=== PATIENT | female | born 1955 | race Caucasian/White ===

== ENCOUNTER 2017-12-18 07:23 | Day surgery (SDC) | payer OTHER ==
[2017-12-18 08:30] LABS: ADD MAN DIFF? NO
[2017-12-18 08:34] LABS: WHITE BLOOD COUNT 4.6 10^3/ul (4.8-10.8)
[2017-12-18 08:34] LABS: BASOPHILS % 0.2 % (0.0-2.0); EOSINOPHILS # 0.1 10^3/ul (0.0-0.5); EOSINOPHILS % 2.6 % (0.0-7.0); HEMATOCRIT 40.8 % (37.0-47.0); HEMOGLOBIN 12.9 g/dl (12.0-16.0); LYMPHOCYTES # 1.6 10^3/ul (0.8-2.9); LYMPHOCYTES % 34.1 % (15.0-51.0); MEAN CORPUSCULAR HEMOGLOBIN 26.6 pg (29.0-33.0); MEAN CORPUSCULAR HGB CONC 31.6 g/dl (32.0-37.0); MEAN CORPUSCULAR VOLUME 84.1 fl (82.0-101.0); MEAN PLATELET VOLUME 11.9 fl (7.4-10.4); MONOCYTE # 0.3 10^3/ul (0.3-0.9); MONOCYTES % 6.9 % (0.0-11.0); NEUTROPHIL # 2.6 10^3/ul (1.6-7.5); PLATELET COUNT 172 10^3/UL (140-415); RED BLOOD COUNT 4.85 10^6/ul (4.20-5.40); RED CELL DISTRIBUTION WIDTH 13.6 % (11.5-14.5)
[2017-12-18 08:56] LABS: INR 1.09; PROTIME 14.2 Sec (11.9-14.9); PT RATIO 1.1
[2017-12-18 08:57] LABS: PARTIAL THROMBOPLASTIN TIME 27.6 Sec (25.0-35.0)
[2017-12-18] MEDS ORDERED: VERAPAMIL 5 MG INJ (09:00)
[2017-12-18] MEDS ORDERED: LIDOCAINE 1% (MDV) 10 ML INJ (09:00)
[2017-12-18] MEDS ORDERED: IODIXANOL LOCM 100 ML BTL ×2 (09:00→09:57)
[2017-12-18] MEDS ORDERED: MIDAZOLAM 1 MG/ML 2 ML INJ (09:00)
[2017-12-18] MEDS ORDERED: NITROGLYCERIN (IC) 100 MCG/ML INJ (09:00)
[2017-12-18] MEDS ORDERED: HEPARIN 1000 UNITS/ML 10 ML INJ (09:00)
[2017-12-18] MEDS ORDERED: FENTAnyl 50 MCG/ML VIAL (09:00)
[2017-12-18 09:02] LABS: ANION GAP 15 (8-16); CARBON DIOXIDE 32 mmol/L (21-31); CHLORIDE 103 mmol/L (97-110); CHOLESTEROL 150 mg/dl (100-200); GLUCOSE 102 mg/dl (70-220); TRIGLYCERIDES 113 mg/dl (0-149)
[2017-12-18 09:10] LABS: BLOOD UREA NITROGEN 10 mg/dl (7-20); CALCIUM 9.3 mg/dl (8.4-10.2); CREATININE 0.59 mg/dl (0.44-1.00); POTASSIUM 3.7 mmol/L (3.5-5.1); SODIUM 146 mmol/L (135-144)
[2017-12-18] MEDS ORDERED: IOHEXOL 350MG/ML 50 ML BTL (09:57)
[2017-12-18] MEDS ORDERED: TICAGRELOR 90 MG TABLET (10:16)
[2017-12-18] MEDS ORDERED: ASPIRIN 325 MG TAB (10:16)
[2017-12-18] MEDS ORDERED: ONDANSETRON 4 MG INJ IV (10:30)
[2017-12-18] MEDS ORDERED: ACETAMINOPHEN 325 MG TAB PO (10:30)
[2017-12-18] MEDS ORDERED: AL HYDROX/MG HYDROX/SIMETH 30 ML CUP PO (10:30)
[2017-12-18] MEDS ORDERED: morphine 2 MG INJ IV (10:30)
[2017-12-18] MEDS ORDERED: OXYCODONE/ACETAMINOPHEN (5/325) TAB PO (10:30)
[2017-12-18] MEDS: SOD CHLORIDE 0.9% 1,000 ML IV (11:05)
[2017-12-18] MEDS: GABAPENTIN 300 MG CAP PO (14:30)
[2017-12-18] MEDS ORDERED: NACL 0.9% 3 ML SYG IV (14:30)
[2017-12-18] MEDS: TICAGRELOR 90 MG TABLET PO (20:30)
[2017-12-18] MEDS: ATORVASTATIN 20 MG TAB PO (20:30)
[2017-12-18] MEDS: METOPROLOL 25 MG TAB PO (20:31)
[2017-12-18] MEDS: CALCIUM CARBONATE 1.25 GM TAB PO (20:31)
[2017-12-18] MEDS: ZOLPIDEM 5 MG TAB PO (22:52)
[2017-12-19 05:52] LABS: ADD MAN DIFF? NO
[2017-12-19 05:56] LABS: WHITE BLOOD COUNT 7.7 10^3/ul (4.8-10.8)
[2017-12-19 05:56] LABS: BASOPHILS % 0.1 % (0.0-2.0); EOSINOPHILS # 0.1 10^3/ul (0.0-0.5); HEMOGLOBIN 12.5 g/dl (12.0-16.0); LYMPHOCYTES # 1.7 10^3/ul (0.8-2.9); LYMPHOCYTES % 21.7 % (15.0-51.0); MEAN CORPUSCULAR HEMOGLOBIN 27.2 pg (29.0-33.0); MEAN CORPUSCULAR HGB CONC 32.9 g/dl (32.0-37.0); MEAN CORPUSCULAR VOLUME 82.6 fl (82.0-101.0); MEAN PLATELET VOLUME 12.2 fl (7.4-10.4); MONOCYTE # 0.6 10^3/ul (0.3-0.9); MONOCYTES % 7.3 % (0.0-11.0); NEUTROPHIL # 5.4 10^3/ul (1.6-7.5); NEUTROPHILS % 69.6 % (39.0-77.0); PLATELET COUNT 165 10^3/UL (140-415); RED CELL DISTRIBUTION WIDTH 14.1 % (11.5-14.5)
[2017-12-19 06:17] LABS: ANION GAP 13 (8-16); BLOOD UREA NITROGEN 10 mg/dl (7-20); CALCIUM 8.9 mg/dl (8.4-10.2); CARBON DIOXIDE 24 mmol/L (21-31); CHLORIDE 109 mmol/L (97-110); CREATININE 0.52 mg/dl (0.44-1.00); GLUCOSE 101 mg/dl (70-220); POTASSIUM 3.6 mmol/L (3.5-5.1); SODIUM 142 mmol/L (135-144)
[2017-12-19] MEDS: LEVOTHYROXINE 50 MCG TAB PO (08:00)
[2017-12-19] MEDS: PANTOPRAZOLE (EC) 40 MG TAB PO (08:01)
[2017-12-19] MEDS: METOPROLOL 25 MG TAB PO (08:02)
[2017-12-19] MEDS: TICAGRELOR 90 MG TABLET PO (08:02)
[2017-12-19] MEDS: CALCIUM CARBONATE 1.25 GM TAB PO (08:02)
[2017-12-19] MEDS: GABAPENTIN 300 MG CAP PO (08:03)
[2017-12-19] MEDS: ENOXAPARIN 40 MG/0.4 ML SYG SC (08:07)
[2017-12-19] MEDS: ASPIRIN (EC) 81 MG TAB PO (08:08)
[2017-12-19] MEDS: CHOLECALCIFEROL 1,000 UNIT TAB PO (08:08)
[2017-12-19] MEDS: DOCUSATE SODIUM 100 MG CAP PO (08:08)
== END 2017-12-19 14:10 | disposition home or self-care (01) ==
LOC: SDS 07:23 → ICU 14:00
DX: I25.10 Atherosclerotic heart disease of native coronary artery without angina pectoris (principal); I34.0 Nonrheumatic mitral (valve) insufficiency; I10 Essential (primary) hypertension; E03.9 Hypothyroidism, unspecified; Z82.49 Family history of ischemic heart disease and other diseases of the circulatory system
CPT/HCPCS: 71045; 80048; 82465; 83036; 84478; 85025; 85610; 85730; 87081; 93005; 93458